=== PATIENT | male | born 1995 | race Caucasian/White ===

== ENCOUNTER 2019-03-21 15:32 | Emergency (ER) | payer MEDICAID ==
[~2019-03-21] VITALS: Ht 175.3 cm; Wt 84.1 kg
[2019-03-21 15:39] VITALS: BP 126/71
[2019-03-21] MEDS ORDERED: triamcinolone acetonide 40mg/ml inj IM ONE (16:10)
[2019-03-21] MEDS ORDERED: PRED10TA23 PO (16:13)
[2019-03-21] MEDS ORDERED: HYDR28CR14 TOP (16:14)
== END 2019-03-21 16:29 | disposition home or self-care (01) ==
LOC: ER 15:33
DX: L23.7 Allergic contact dermatitis due to plants, except food (principal); Z79.899 Other long term (current) drug therapy
CPT/HCPCS: 96372; 99283; J3301

== ENCOUNTER 2019-11-18 14:04 | Emergency (ER) | payer MEDICAID ==
[~2019-11-18] VITALS: Ht 177.8 cm; Wt 67.0 kg
[~2019-11-18 14:04] MED LIST: HYDR28CR14 TOP; LIDOcaine 1% W/epiNEPHrine 1:100,000 20ml vial ONE
[2019-11-18] MEDS ORDERED: bacitracin 15gm ointment TP ONE (15:05)
[2019-11-18] MEDS ORDERED: TETanus/Pertussis (Acell)/Diphther VAC/PF (Tdap-Adult) 0.5ml syringe IMVAC ONE (15:05)
[2019-11-18] MEDS ORDERED: HYDROcodone/acetaminophen 5mg/325mg tablet PO ONE (15:05)
[2019-11-18] MEDS ORDERED: ondansetron 4mg rapidly disintigrating tab PO ONE (15:05)
[2019-11-18] MEDS ORDERED: LIDOcaine 1% W/epiNEPHrine 1:200,000 10ml vial IJ ONE (15:05)
[2019-11-18 17:01] VITALS: BP 121/63
== END 2019-11-18 16:48 | disposition home or self-care (01) ==
LOC: ER 14:04
DX: S61.012A Laceration without foreign body of left thumb without damage to nail, initial encounter (principal); Z79.899 Other long term (current) drug therapy; W26.9XXA Contact with unspecified sharp object(s), initial encounter; Y93.89 Activity, other specified; Y92.89 Other specified places as the place of occurrence of the external cause; Y99.8 Other external cause status
CPT/HCPCS: 12001; 73130; 90471; 90715; 99283